=== PATIENT | male | born 1990 | race Caucasian/White ===

== ENCOUNTER 2021-02-21 14:42 | Emergency (ER) | payer MEDICAID ==
[~2021-02-21] VITALS: Ht 185.4 cm; Wt 88.6 kg
[2021-02-21 15:35] LABS: BASOPHILS % (AUTO) 0.5 % (0-1); EOSINOPHILS # (AUTO) 0.2 X10'3 (0-0.9); HEMOGLOBIN 16.2 g/dl (14.0-17.9); LYMPHOCYTES # (AUTO) 1.9 X10'3 (1.1-4.8); MEAN CORPUSCULAR HEMOGLOBIN 31.4 PG (27.0-31.0); MEAN CORPUSCULAR HGB CONC 33.8 g/dL (33.0-36.5); MEAN CORPUSCULAR VOLUME 93.1 FL (78-98); MEAN PLATELET VOLUME 8.7 FL (7.4-10.4); MONOCYTES # (AUTO) 0.6 X10'3 (0-0.9); MONOCYTES % (AUTO) 6.8 % (2-12); NEUTROPHILS # (AUTO) 5.9 X10'3 (1.8-7.7); NEUTROPHILS % (AUTO) 68.7 % (42-75); PLATELET COUNT 207 X10'3 (140-440); RED BLOOD COUNT 5.16 X10'6 (4.70-6.10); WHITE BLOOD COUNT 8.6 X10'3 (4.5-11.0)
[2021-02-21 15:44] LABS: PARTIAL THROMBOPLASTIN TIME 26 SECONDS (22-32)
[2021-02-21 15:47] LABS: ANION GAP 10 (8-16); BLOOD UREA NITROGEN 19 MG/DL (7-18); BUN/CREATININE RATIO 19.2 (5.4-32.0); CHLORIDE 105 MMOL/L (99-107); CREATININE 0.99 MG/DL (0.60-1.10); GLUCOSE 117 MG/DL (70-104); POTASSIUM 4.1 MMOL/L (3.5-5.1); SODIUM 144 MMOL/L (135-145); TOTAL CARBON DIOXIDE 29.2 MMOL/L (24-32)
[2021-02-21 15:48] LABS: ALANINE AMINOTRANSFERASE 40 U/L (12-78); ALBUMIN 4.3 G/DL (3.4-5.0); ALKALINE PHOSPHATASE 64 IU/L (46-116); ASPARTATE AMINO TRANSFERASE 20 U/L (10-37); BILIRUBIN,TOTAL 0.4 MG/DL (0.1-1.0); CALCIUM 9.2 MG/DL (8.5-10.1); TOTAL PROTEIN 8.5 G/DL (6.4-8.2); eGFR 89 ML/MIN
[2021-02-21 15:57] LABS: MAGNESIUM 1.9 MG/DL (1.5-2.4)
[2021-02-21 20:45] VITALS: BP 155/110
== END 2021-02-21 21:27 | disposition home or self-care (01) ==
LOC: ER 14:42
DX: R07.9 Chest pain, unspecified (principal)
CPT/HCPCS: 36415; 80053; 83735; 84443; 84484; 85025; 85610; 85730; 93005; 99284

== ENCOUNTER 2021-03-22 02:53 | Emergency (ER) | payer MEDICAID ==
[~2021-03-22] VITALS: Ht 185.4 cm; Wt 88.6 kg
[2021-03-22 03:00] VITALS: BP 169/104
--- NOTE | 2021-03-22 03:11 | NUR ---
MD FORD NOTIFIED OF PT SYMPTOMS AND COMPLAINTS. ER MD FORD, NOT A STROKE ALERT DUE TO ONSET OF 1630 YESTERDAY.
[2021-03-22] MEDS ORDERED: ASPI-1265 PO (04:24)
[2021-03-22] MEDS ORDERED: aspirin 81mg tab.chew PO ONE (04:25)
== END 2021-03-22 04:58 | disposition home or self-care (01) ==
LOC: ER 02:53
DX: R20.0 Anesthesia of skin (principal); Z98.890 Other specified postprocedural states; Z79.82 Long term (current) use of aspirin
CPT/HCPCS: 93005; 99283

== ENCOUNTER 2021-05-12 10:45 | Emergency (ER) | payer MEDICAID ==
[~2021-05-12] VITALS: Ht 185.4 cm; Wt 81.8 kg
[2021-05-12] MEDS ORDERED: hydrOXYzine 25 MG tablet PO ONE (11:10)
[2021-05-12 11:52] LABS: D-DIMER < 0.19 MG/L FEU (0-0.50)
[2021-05-12] MEDS ORDERED: HYDR-3686 PO (12:30)
[2021-05-12 12:56] VITALS: BP 139/92
== END 2021-05-12 12:58 | disposition home or self-care (01) ==
LOC: ER 10:45
DX: F41.9 Anxiety disorder, unspecified (principal); R07.89 Other chest pain; R00.2 Palpitations; Z98.890 Other specified postprocedural states; Z79.899 Other long term (current) drug therapy
CPT/HCPCS: 36415; 83880; 84484; 85379; 93005; 99284; Q0177

== ENCOUNTER 2022-10-08 15:30 | Outpatient (CLI) | payer MEDICAID ==
[~2022-10-08 15:30] MED LIST: HYDR-3686 PO
== END 2022-10-08 23:59 | disposition home or self-care (01) ==
LOC: RAD 15:30
PROVIDERS: ATTEND Thoracic Surgery (Cardiothoracic Vascular Surgery)
DX: R07.9 Chest pain, unspecified (principal); Z95.2 Presence of prosthetic heart valve; Z98.890 Other specified postprocedural states
CPT/HCPCS: 71046

== ENCOUNTER 2023-08-31 12:20 | Emergency (ER) | payer MEDICAID ==
[~2023-08-31] VITALS: Ht 188 cm; Wt 93.0 kg
[2023-08-31 12:22] VITALS: TEMP 97
[2023-08-31 13:28] LABS: BASOPHILS # (AUTO) 0.1 X10'3 (0-0.2); BASOPHILS % (AUTO) 1.9 % (0-1); EOSINOPHILS % (AUTO) 0.6 % (0-6); HEMATOCRIT 41.3 % (42.0-52.0); HEMOGLOBIN 14.3 g/dl (14.0-17.9); LYMPHOCYTES # (AUTO) 0.3 X10'3 (1.1-4.8); LYMPHOCYTES % (AUTO) 5.5 % (21-51); MEAN CORPUSCULAR HEMOGLOBIN 30.9 PG (27.0-31.0); MEAN CORPUSCULAR HGB CONC 34.8 g/dL (33.0-36.5); MEAN CORPUSCULAR VOLUME 88.8 FL (78-98); MEAN PLATELET VOLUME 8.9 FL (7.4-10.4); MONOCYTES # (AUTO) 0.4 X10'3 (0-0.9); MONOCYTES % (AUTO) 6.9 % (2-12); NEUTROPHILS # (AUTO) 5.2 X10'3 (1.8-7.7); NEUTROPHILS % (AUTO) 85.1 % (42-75); PLATELET COUNT 133 X10'3 (140-440); RED BLOOD COUNT 4.65 X10'6 (4.70-6.10); RED CELL DISTRIBUTION WIDTH 13.9 % (11.5-14.5); WHITE BLOOD COUNT 6.1 X10'3 (4.5-11.0)
[2023-08-31 13:38] LABS: APTT 36 SECONDS (22-32); INR 1.9 INR; PROTHROMBIN TIME 19.3 SECONDS (9.0-12.0)
[2023-08-31 13:44] LABS: ALBUMIN 3.8 G/DL (3.4-5.0); ANION GAP 8 (8-16); BLOOD UREA NITROGEN 45 MG/DL (7-18); BUN/CREATININE RATIO 18.2 (10.0-20.0); CALCIUM 9.6 MG/DL (8.5-10.1); CHLORIDE 99 MMOL/L (99-107); CREATININE 2.47 MG/DL (0.60-1.10); GLUCOSE 142 MG/DL (70-104); POTASSIUM 4.3 MMOL/L (3.5-5.1); SODIUM 133 MMOL/L (135-145); TOTAL CARBON DIOXIDE 25.6 MMOL/L (24-32); eCRCL 50 ML/MIN; eGFR 31 ML/MIN
[2023-08-31] MEDS: morphine 2 MG/ML inj. syringe IV ONE (14:36)
[2023-08-31] MEDS: ondansetron/PF 4mg/2ml inj IV ONE (14:36)
[2023-08-31 15:06] VITALS: BP 50/37
[2023-08-31] MEDS: oxyCODONE/APAP 10/325mg tablet PO ONE (15:09)
[2023-08-31] MEDS: normal saline 1000ML IV soln IVB ONE (16:56)
[2023-08-31] MEDS: morphine 10mg/ml inj. IV ONE ×2 (17:37→20:46)
[2023-08-31] MEDS: CefTRIAXone 2gm/D5W 50ml BAG 50 ML IV ONE (18:37)
[2023-08-31 19:20] VITALS: PULSE 81; O2SAT 95
[2023-08-31] MEDS: HYDROmorphone 1 mg/ml syringe IV ONE (20:39)
[2023-08-31 21:01] VITALS: RESP 16
== END 2023-08-31 21:09 | disposition short-term general hospital (02) ==
LOC: ER 12:21
DX: G93.40 Encephalopathy, unspecified (principal); N17.8 Other acute kidney failure; Z86.73 Personal history of transient ischemic attack (TIA), and cerebral infarction without residual deficits; Z87.891 Personal history of nicotine dependence; Z79.899 Other long term (current) drug therapy
CPT/HCPCS: 36415; 70450; 71045; 80048; 82948; 84145; 84484; 85025; 85610; 85730; 87040; 93005; 96361; 96365; 96375; 99285; J0696; J1170; J2270; J2274; J2405; J7030

== ENCOUNTER 2025-02-06 05:48 | Emergency (ER) | payer MEDICAID ==
[~2025-02-06] VITALS: Ht 182.9 cm; Wt 95.1 kg
[2025-02-06] VITALS (11 sets, daily range): BP systolic 76–101; BP diastolic 6–81; PULSE 95–118; RESP 16–28; TEMP 100; O2SAT 20–97
--- NOTE | 2025-02-06 06:08 | Physician Documentation ---
History of Present Illness ~ Chief Complaint: Overdose Stated Complaint: CALROS Mccormick ALS Time Seen by MD: 06:08 Primary Medical Doctor: DR. CARLITO RUBIO HPI 34-year-old male, who has an LVAD, presenting found down unresponsive Per EMS, the patient was seen by his father, and then found down unresponsive. When they arrived, he was not breathing very well and was very pale. Blood glucose was in the 200s. He was given 4 mg of Narcan and it did seem to slightly help wake him up. On arrival here in the ED, the patient is pale and is not really breathing well. Medication Reconciliation Allergies: Coded Allergies: isosorbide (Unverified Adverse Reaction, Unknown, MIGRAINES, 02/06/25) Scheduled Baclofen (Baclofen), 1 TAB PO TID, (Reported) Buspirone HCl (Buspirone HCl), 1 TAB PO TID, (Reported) Carvedilol (Carvedilol), 2 TAB PO BID, (Reported) Clonidine HCl (Clonidine HCl), 1 TAB PO TID, (Reported) Folic Acid* (Folic Acid*), 1 TAB PO DAILY, (Reported) Gabapentin (Neurontin), 300 MG PO morning and mid day, (Reported) Gabapentin (Neurontin), 600 MG PO HS, (Reported) Hydralazine HCl (Hydralazine HCl), 1 TAB PO TID, (Reported) Losartan Potassium (Losartan Potassium), 1 TAB PO DAILY, (Reported) Multivitamin (Multi Vitamin Daily), 1 TAB PO DAILY, (Reported) Naloxone HCl (Narcan), 1 SPRAYS BOTHNARES ONCE, (Reported) Nifedipine (Nifedipine Er), 3 TAB PO DAILY, (Reported) Oxycodone Hcl (Oxycodone Hcl), 1 TAB PO QID, (Reported) Pantoprazole Sodium (Pantoprazole Sodium), 1 TAB PO QAM, (Reported) Potassium Chloride* (K-Dur*), 1 TAB PO DAILY, (Reported) Sodium Chloride (Saline Nasal [place]), 1 SPRAYS BOTHNARES BID, (Reported) Warfarin Sodium (Warfarin Sodium), 1 TAB PO DAILY, (Reported) Scheduled PRN Alprazolam (Alprazolam), 0.25-0.5 TAB PO TID PRN for anxiety, (Reported) Furosemide (Furosemide), 1 TAB PO for per VAD team, (Reported) Discontinued Medications Hydroxyzine Hcl (Atarax), 25 MG PO TID Discontinued Reason: patient no longer taking Past Medical History Past Medical History: CVA/TIA/Stroke, *CARDIOVASCULAR* Past Surgical History: heart valve surgery Alcohol Use: None Lives In: Home Review of Systems Unable to obtain complete ROS: altered mental status, medical urgency Physical Exam Vital Signs: Temperature: 97.6, Source: Oral, Heart Rate: 84, Respiratory Rate: 13, BP: 116/75, Pulse Oximetry: 85, Weight: 95.100 Physical Exam General: This is an ill-appearing young man, unresponsive HEENT: No obvious trauma, pupils are 3 mm and sluggish Heart: The patient has an LVAD, I can hear mechanical noises to suggest it is working, I do not hear an alarm Lungs: Very shallow respirations, minimal coarse breath sounds, severe hypoxia Abdomen: Soft, nondistended Extremities: Cool and poorly perfused Neuro: Minimally responsive, does 1 time briefly wake up and bends his knees and moans, then essentially unresponsive Procedures Intubation Intubation Method: orotracheal Endotracheal Tube Size: 8 Medications: Etomidate ETT Confirmation: Ascultation, CO2 Detector Breath Sounds After Intubation: equal Intubation Complications: no complications Post Intubation Xray: Yes Progress/Xray Impression: ET tube in appropriate location Procedure Note The patient is emergently intubated using rocuronium and etomidate, with direct visualization. Oxygen saturations improved afterwards into the 90s Progress Results/Orders Results/Orders Orders - CLAUS JC MD Non-Behavioral Restraints (02/06/25 06:36) Nasal Gastric Tube (02/06/25 06:36) Chest,Single View (02/06/25 07:28) Abg (Arterial Blood Gas) (02/06/25 08:11) Ct Chest (02/06/25 08:51) Rt Assessment/Protocol/Eval/Tx (02/06/25 ) Completed Orders - CLAUS JC MD * (A) Lacy- Protocol * Q12H@07,19 (02/06/25 06:36) Normal Saline 1000ml (0.9% Sodium Chlori (02/06/25 06:50) Sodium Bicarbonate 1meq/Ml Syr (Sodium B (02/06/25 07:00) Piperacillin/Tazo 3.375gm/50ml (Zosyn 3. (02/06/25 07:25) Chest,Single View (02/06/25 07:28) Midazolam 5 Mg/Ml 2ml Inj (Versed 5 Mg/M (02/06/25 08:25) Midazolam 5 Mg/Ml 2ml Inj (Versed 5 Mg/M (02/06/25 08:30) Ct Chest (02/06/25 08:51) Ketamine 50mg/Ml 10ml Inj (Ketamine 50mg (02/06/25 08:50) Normal Saline 1000ml (0.9% Sodium Chlori (02/06/25 09:20) Midazolam 5 Mg/Ml 2ml Inj (Versed 5 Mg/M (02/06/25 08:35) * Extubate Patient * (02/06/25 09:15) Rocuronium Inj. (Zemuron Inj) (02/06/25 08:00) Normal Saline Flush Syringe (Saline Flus (02/06/25 08:00) Etomidate Inj (Amidate Inj) (02/06/25 08:00) Naloxone 2mg/2ml Inj (Narcan 2mg/2ml Inj (02/06/25 08:00) Acetaminophen 325mg Tablet (Tylenol Tabl (02/06/25 15:50) Medications Received in ER Medications (Trade) Dose Ordered Sig/Ruthy Route PRN Reason Start Time Stop Time Status Last Admin Dose Admin (Tylenol tablet) 975 mg ONCE ONCE PO 02/06/25 15:50 02/06/25 15:52 DC 02/06/25 16:09 975 MG Vital Signs 02/06/25 02/06/25 02/06/25 02/06/25 05:51 06:08 06:22 06:23 Temp 97.6 Pulse 84 106 108 Resp 13 16 16 16 B/P (MAP) 116/75 98/77 (84) Pulse Ox 85 93 94 FiO2 100 100 02/06/25 02/06/25 02/06/25 02/06/25 06:44 06:58 07:18 07:19 Temp 95.6 96.6 Pulse 115 118 121 Resp 17 20 21 B/P (MAP) 100/79 (86) 100/74 91/22 (45) Pulse Ox 95 93 91 FiO2 100 100 100 02/06/25 02/06/25 02/06/25 02/06/25 07:41 07:55 07:59 08:50 Temp 96.8 Pulse 119 108 Resp 33 23 B/P (MAP) 90/72 92/74 (80) 91/74 Pulse Ox 97 97 FiO2 100 50 02/06/25 02/06/25 02/06/25 02/06/25 08:55 08:58 09:08 09:15 Temp 97.0 Pulse 108 109 105 108 Resp 23 24 B/P (MAP) 79/67 (71) 77/65 (69) Pulse Ox 95 97 91 95 FiO2 55 55 55 55 02/06/25 02/06/25 02/06/25 02/06/25 09:19 09:33 09:45 09:51 Temp 97.0 Pulse 100 100 100 Resp 20 24 24 B/P (MAP) (47) 91/ (82) 96/81 Pulse Ox 91 92 92 O2 Delivery High Flow Nasal Cannula O2 Flow Rate 25.0 20.0 FiO2 55 02/06/25 02/06/25 02/06/25 02/06/25 09:52 10:17 11:54 12:44 Temp 97.1 97.9 97.8 Pulse 100 91 91 95 Resp 18 29 B/P (MAP) 94/80 (85) 93/78 (83) 99/82 (88) Pulse Ox 92 95 94 94 O2 Flow Rate 20.0 25.0 25.0 25.0 02/06/25 02/06/25 02/06/25 02/06/25 14:00 14:20 15:00 15:30 Temp 99.6 99.8 100.0 Pulse 95 100 103 101 Resp 21 28 B/P (MAP) 92/68 (76) 98/74 (82) 98/75 (83) Pulse Ox 93 94 89 90 O2 Flow Rate 15.0 25.0 25.0 25.0 02/06/25 02/06/25 16:28 17:01 Pulse 106 Resp 28 B/P (MAP) 96/70 (79) Pulse Ox 94 94 O2 Flow Rate 15.0 15.0 Laboratory Tests Test 02/06/25 06:09 9/29/25 06:50 02/06/25 07:47 02/06/25 08:09 White Blood Count 20.2 H Red Blood Count 3.82 L Hemoglobin 9.6 L Hematocrit 29.3 L Mean Corpuscular Volume 78.9 Mean Corpuscular Hemoglobin 25.9 L Mean Corpuscular Hemoglobin Concent 32.9 L Red Cell Distribution Width 18.5 H Platelet Count 297 Mean Platelet Volume 8.4 Neutrophils (%) (Auto) 60.8 Lymphocytes (%) (Auto) 31.1 Monocytes (%) (Auto) 6.1 Eosinophils (%) (Auto) 1.5 Basophils (%) (Auto) 0.5 Neutrophils # (Auto) 12.3 H Lymphocytes # (Auto) 6.3 H Monocytes # (Auto) 1.2 H Eosinophils # (Auto) 0.3 Basophils # (Auto) 0.1 CBC Comment Platelet Estimate Normal Red Blood Cell Morphology Perf Polychromasia 1+ Basophilic Stippling Anisocytosis 2+ [place] Cells Few Elliptocytes Few Prothrombin Time 29.1 H INR International Normalized Ratio 3.2 Coagulation Comments Sodium Level 148 H Potassium Level 4.0 Chloride Level 109 H Carbon Dioxide Level 16.4 L Anion Gap 23 H Blood Urea Nitrogen 14 Creatinine 1.34 H Estimated GFR/1.73 m2 61 BUN/Creatinine Ratio 10.4 Glucose Level 251 H Lactic Acid Level 13.7 *H Calcium Level 8.0 L Total Bilirubin 0.1 Aspartate Amino Transf (AST/SGOT) 27 Alanine Aminotransferase (ALT/SGPT) 18 Alkaline Phosphatase 64 Troponin I High Sensitivity 48 49 Pro-B-Type Natriuretic Peptide 5942 H Total Protein 6.5 Albumin 3.1 L Globulin 3.4 Albumin/Globulin Ratio 0.9 L Procalcitonin < 0.05 Chemistry Comments Ethyl Alcohol Level 44 H Blood Gas Specimen Type Arterial Arterial Blood Gas Puncture Site Carol Medina O2 Saturation 92.2 L 94.7 Arterial Blood pH (Temp corrected) 6.942 *L 7.362 Arterial Blood pCO2 (Temp correct) 56.0 H 35.4 Arterial Blood pO2 (Temp corrected) 93.1 75.2 L Arterial Blood PO2/FiO2 Ratio 1.02 0.80 Arterial Blood HCO3 12.1 L 19.9 L Arterial Blood Base Excess -20.2 L -5.2 L Arterial Blood Oxyhemoglobin 90.7 L 93.6 L Arterial Blood Carboxyhemoglobin 1.1 0.9 Arterial Blood Methemoglobin 0.5 0.3 Arterial Blood Deoxyhemoglobin 7.7 H 5.2 H Victorino Test Na Na Blood Gas Hemoglobin 11.4 L 10.8 L Blood Gas Temperature 35.5 36.0 Blood Gas Set Respiration Rate 16 20 Blood Gas Modality Vent - prvc Vent - prvc FiO2 100.0 100.0 Blood Gas Tidal Volume 450 450 Blood Gas PEEP 8 10 Blood Gas Critical Value Called To Dr. jc Troponin I High Sens Percent Delta 2 Troponin I Hi Sens Absolute Change 1 Test 02/06/25 09:04 02/06/25 09:24 Urine Specimen Description Lacy cath Urine Color Yellow Urine Clarity Slightly cloudy Urine pH 6.5 Urine Specific [place] 1.025 Urine Protein >=300 H Urine Glucose (UA) Negative Urine Ketones Negative Urine Occult Blood Negative Urine Nitrite Negative Urine Bilirubin Negative Urine Urobilinogen 0.2 Urine Leukocyte Esterase Negative Urine RBC 0-2 Urine WBC 10-20 H Urine Squamous Epithelial Cells Few Urine Bacteria 2+ Urine Cellular Casts >30 Urine Hyaline Casts 0-3 Urine Fine Granular Casts 0-3 Urine Mucus Moderate Urine Yeast Urine Culture Indicated Indicated Volume Urine Centrifuged 10 ml Urine Comment Urine Opiates Screen Negative Urine Methadone Screen Negative Urine Fentanyl Screen Negative Urine Barbiturates Screen Negative Urine Phencyclidine Screen Negative Urine Amphetamines Screen Negative Urine Benzodiazepines Screen Positive Urine Cocaine Screen Negative Urine Cannabinoids Screen Positive Drug Screen Comment Lactic Acid Level 2.0 Troponin I High Sensitivity 126 *H Troponin I High Sens Percent Delta 157 Troponin I Hi Sens Absolute Change 77 Microbiology Date/Time Source Procedure Growth Status 02/06/25 10:02 Urine Lacy Cath Urine Culture - Preliminary Culture received. Resulted 02/06/25 07:47 Blood Arterial Line Blood Culture - Preliminary NEGATIVE (LESS THAN 24 HOURS) Resulted Departure Impression: Primary Impression: Poisoning by opiate or related narcotic Additional Impression: Acute hypoxic respiratory failure Referrals: NO PRIMARY CARE PROVIDER (PCP) Critical Care Note Critical Care Note Critical Care Note The very real possibility of a deterioration of this patient's condition required the highest level of my preparedness for sudden, emergent intervention. I provided critical care services, which included medication orders, frequent reevaluations of the patient's condition and response to treatment, ordering and reviewing test results, and discussing the case with various consultants. Excludes time spent performing separately billable procedures. The critical care time associated with the care of the patient was 45 minutes in the management of acute hypoxic respiratory failure Signature Scribe Signature: kota Attestation: na Addendum Received patient in sign out from outgoing ED physician, Dr. Smith. Please see their note (and other providers) for further specific details regarding initial encounter. HPI/Course In Brief: This 34-year-old male with an LVAD reportedly crushed some opioid pills and self administered them. His father noted that he was able to walk back to his bedroom but subsequently found him unresponsive. EMS arrived reportedly 10 minutes later and administered Narcan. He has reportedly had 6 mg IV but was hypoventilating and pale. He was intubated without difficulty by the night physician, Dr. Smith. I inserted an art line into his right brachial artery and a central line through the right internal jugular as per my notes. A time out was performed. My hands were washed immediately prior to the procedure. I wore a surgical cap, mask with protective eyewear, sterile gown and sterile gloves throughout the procedure. After an Victorino test was performed to ensure adequate perfusion, the right antecubital fossa was prepped using chlorhexidine scrub and draped in sterile fashion using a three quarter sheet drape and sterile towels. The radial pulse was identified and the wrist was positioned in the usual fashion. Anesthesia was achieved using 1% lidocaine. Using the Arrow Radial Arterial Line Kit, a needle was inserted into the radial artery. Arterial blood was seen to pulsate in the flash chamber. The internal guidewire was advanced easily into the radial artery. The catheter was then advanced over the wire and the needle and wire were withdrawn. The catheter was sutured in place. A sterile opsite was placed over the catheter at the insertion site. The patient tolerated the procedure without any hemodynamic compromise. At the time of procedure completion, the catheter was connected to the site monitor and calibrated. Appropriate waveform and blood pressure tracing was observed. Estimated blood loss is two cc. PROCEDURE: Ultrasound Guided right internal jugular Central Venous Line Insertion DIAGNOSIS: Critical patient Procedure Performed by Claus Jc MD INFORMED CONSENT: Informed Consent was obtained. Procedural pause was observed at 6:15 a.m.. I have verified the correct patient, correct procedure, correct position, correct site, and available equipment. The site was marked. PROCEDURE START TIME: 6:15 a.m.. PROCEDURE STOP TIME: 7:00 a.m.. INDICATION: Insufficient peripheral venous access for pressors, etc.. PROCEDURE IN DETAIL: The patient and ultrasound transducer were prepped and draped in sterile fashion. Using the linear probe covered in a sterile sheath, a short axis view of the vein was obtained. This vein was completely compressible and was identified as separate from the adjacent non-compressible arterial structure. No intraluminal clot was visualized. Longitudinal views of the target vein were also obtained. No intravascular thrombus was identified. Under dynamic ultrasound guidance, an 18 gauge needle was advanced with return of dark red, non-pulsatile blood. A wire was advanced without difficulty. A 0.5 cm incision was made at the skin and the subcutaneous tissue is dilated. The catheter was advanced over the wire via the Seldinger technique and the wire was removed. All ports flushed without difficulty. The catheter was secured in place with sutures and the entrance site covered with a sterile, transparent, semi-permeable dressing With placement of CHG Biopatch. Placement was confirmed by radiography. These images were captured, recorded, and archived. The patient tolerated the procedure well with no complications. Blood loss was minimal. Conclusion: Successful central venous catheterization under ultrasound guidance. An initial blood gas revealed a pH of 6.925. Two amps of bicarb were ad ministered. PH improved. The patient awoke and was extubated in the emergency department. Of note, his hemoglobin here is 9.4 with normal previous hemoglobin levels. He reports bleeding per rectum that he noticed three days ago. He still has slurred s peech. ED COURSE: 10:16 a.m.: I spoke with the [facility] LVAD coordinator, Bryce ([phone]) who said he would discuss the case with his physicians in order to arrive at a transfer decision. Due to the high probability of cardiovascular failure required my full attention for about 60 minutes while the patient was critical. I provided critical care services which included medication orders, frequent re-evaluations, response to treatment, renewing test results, and discussing case with various consultants. Unless specifically stated all procedures, tests, and medications were performed/interpreted under the direct supervision of the emergency department physician. Discussed harm reduction to this emergency department visit today. Patient expresses understanding and agrees to plan. All questions answered to the best of my ability. Discharged in stable condition with strict ED return precautions and close outpatient follow-up with primary care. EMR and Dragon Attestation - this medical document was created using an electronic medical record system with [employer] computerized dictation system. Although this document has been carefully reviewed, there may still be some phonetic and typographical errors. These errors are purely typographical, due to imperfections of the software programs, and do not reflect any compromise in the patient's medical care. Note to Patients: Physician notes are written for the purpose of communication between medical providers and billing purposes. There may be aspects of this documentation that are simplified for efficiency and clarity. Physician notes are not intended to capture the entirety of your experience in the hospital. If you have questions about the way your medical condition and care was documented, please do not hesitate to bring this up at your next visit with your physician. AUSTYN SMITH MD Feb 06, 2025 06:08 CLAUS JC MD Feb 06, 2025 07:37
[2025-02-06] MEDS: etomidate 2mg/ml inj. IV ONE (06:17)
[2025-02-06] MEDS: rocuronium 10mg/ml inj IV ONE (06:18)
[2025-02-06] MEDS: naloxone 2mg/2ml inj ONE (06:19)
[2025-02-06 06:30] LABS: MEAN PLATELET VOLUME 8.4 FL (7.4-10.4); RED CELL DISTRIBUTION WIDTH 18.5 % (11.5-14.5)
[2025-02-06] MEDS ORDERED: propofol 1000mg/100ml bottle 100 ML IV SCH (06:30)
[2025-02-06] MEDS: propofol 1000mg/100ml bottle 100 ML IV ONE (06:34)
[2025-02-06] MEDS: propofol 1000mg/100ml bottle 100 ML IV PRN (06:36)
[2025-02-06 06:46] LABS: INR 3.2 INR
[2025-02-06] MEDS: normal saline 1000ML IV soln IVB ONE (06:53)
[2025-02-06 06:55] LABS: ABG BASE EXCESS -20.2 mmol/L (-2.0-3.0); ABG HCO3 12.1 mmol/L (21.0-28.0); ABG OXYGEN SATURATION 92.2 % (94.0-98.0); ABG PCO2 (T) 56.0 mmHg (35.0-48.0); ABG PH (T) 6.942 (7.350-7.450); ABG PO2 (T) 93.1 mmHg (83.0-108.0); FCOHb 1.1 % (0.5-1.5); FHHb 7.7 % (0.0-5.0); FIO2 100.0 mmHg/%; FMetHb 0.5 % (0.0-1.5); FO2Hb 90.7 % (94.0-98.0); MODE VENT - PRVC; PATIENT TEMPERATURE 35.5; PEEP 8 cm H2O; RESPIRATORY RATE 16 b/min; TIDAL VOLUME 450 mL; TOTAL HEMOGLOBIN 11.4 G/dl (13.5-17.5)
[2025-02-06 06:58] LABS: CREATININE 1.34 MG/DL (0.60-1.10); TOTAL CARBON DIOXIDE 16.4 MMOL/L (24-32); eCRCL 86 ML/MIN; eGFR 61 ML/MIN
[2025-02-06 07:00] LABS: ETHANOL 44 MG/DL (<10); PRO BRAIN NATRIURETIC PEPTIDE 5942 PG/ML (0-125)
[2025-02-06] MEDS: sodium bicarbonate (8.4%) 1 mEq/ml syringe IV ONE (07:18)
--- NOTE | 2025-02-06 07:35 | RADIOLOGY REPORT ---
CHEST RADIOGRAPH Indication: POST INTUBATION Technique: Single frontal view of the chest was obtained Comparison: DI CHEST,SINGLE VIEW on DOS: 08/31/23 FINDINGS: Lines and Tubes: The endotracheal tube terminates 3.9 cm above the [place]. The enteric tube courses below the left hemidiaphragm and the tip extends outside the field of view. Lungs: Patchy bilateral airspace disease. Pleura: No effusion. No pneumothorax. Cardiomediastinal contours: Cardiomegaly. Left ventricular assist device noted. Bones: No acute osseous abnormality. IMPRESSION: Bilateral airspace disease which may reflect pulmonary edema Cardiomegaly.
--- NOTE | 2025-02-06 07:53 | RADIOLOGY REPORT ---
CHEST RADIOGRAPH Indication: CENTRAL LINE PLACEMENT. Technique: Single frontal view of the chest was obtained Comparison: DI CHEST,SINGLE VIEW on DOS: 02/06/25, DI CHEST,SINGLE VIEW on DOS: 08/31/23, XR CHEST 2 VIEWS PA LATERAL on DOS: 07/03/23, XR CHEST 2 VIEWS PA LATERAL on DOS: 07/03/23, CHEST,TWO VIEWS on DOS: 10/08/22, DI CHEST,SINGLE VIEW on DOS: 02/06/25 FINDINGS: Lines and Tubes: The endotracheal tube terminates 3.9 cm above the [place]. The enteric tube courses below the left hemidiaphragm and the tip extends outside the field of view. Lungs: Patchy bilateral airspace disease. Pleura: No effusion. No pneumothorax. Cardiomediastinal contours: Cardiomegaly. Left ventricular assist device noted. Bones: No acute osseous abnormality. IMPRESSION: Bilateral airspace disease which may reflect pulmonary edema Cardiomegaly.
[2025-02-06] MEDS: piperacillin/tazo 3.375gm/50ml 50 ML IV ONE (07:59)
[2025-02-06] MEDS ORDERED: etomidate 2mg/ml inj. ONE (08:00)
[2025-02-06] MEDS ORDERED: naloxone 2mg/2ml inj ONE (08:00)
[2025-02-06] MEDS ORDERED: rocuronium 10mg/ml inj IV ONE (08:00)
[2025-02-06] MEDS ORDERED: sod chloride 0.9% 10ml flush syringe IV ONE (08:00)
[2025-02-06 08:14] LABS: ABG BASE EXCESS -5.2 mmol/L (-2.0-3.0); ABG HCO3 19.9 mmol/L (21.0-28.0); ABG OXYGEN SATURATION 94.7 % (94.0-98.0); ABG PCO2 (T) 35.4 mmHg (35.0-48.0); ABG PH (T) 7.362 (7.350-7.450); ABG PO2 (T) 75.2 mmHg (83.0-108.0); FCOHb 0.9 % (0.5-1.5); FHHb 5.2 % (0.0-5.0); FIO2 100.0 mmHg/%; FMetHb 0.3 % (0.0-1.5); FO2Hb 93.6 % (94.0-98.0); MODE VENT - PRVC; PATIENT TEMPERATURE 36.0; PEEP 10 cm H2O; RESPIRATORY RATE 20 b/min; TIDAL VOLUME 450 mL; TOTAL HEMOGLOBIN 10.8 G/dl (13.5-17.5)
[2025-02-06] MEDS: MIDAZolam 5mg/ml 2ml vial ONE (08:27)
[2025-02-06] MEDS: MIDAZolam 5mg/ml 2ml vial IV ONE ×2 (08:35)
--- NOTE | 2025-02-06 09:06 | RADIOLOGY REPORT ---
EXAM: CT CT HEAD HISTORY: Altered mental status unresponsive COMPARISON: CT CT STROKE ALERT on DOS: 08/31/23, CT BRAIN WO CONTRAST on DOS: 07/03/23 TECHNIQUE: Noncontrast axial CT images of the head were performed. Sagittal and coronal reformatted images were obtained. This CT exam was performed using 1 or more of the following dose reduction techniques: Automated exposure control, adjustment of the mA and/or kv according to patient size, or the use of iterative reconstruction techniques. Radiation Dose: CTDI volume is 69.17 mGy. Dose-length product is 1231.77 mGy*cm FINDINGS: No intracranial hemorrhage, mass, midline shift, hydrocephalus, or evidence of acute large vessel infarct. Old infarcts are re-identified in the right posterior frontal lobe, basal ganglia, and insula. There is a mucous retention cyst in the right maxillary sinus. There is mild mucosal thickening in the ethmoid sinuses. There are bilateral chris bullosa. The bilateral mastoid air cells and middle ear spaces are clear. No cranial fracture or scalp edema. IMPRESSION: 1. Chronic ischemic changes without evidence of acute intracranial process. 2. Mild paranasal sinus disease.
--- NOTE | 2025-02-06 09:06 | RADIOLOGY REPORT ---
CT Chest without intravenous contrast INDICATION: Non-diagnostic x-ray TECHNIQUE: Multidetector spiral CT of the chest was performed from the lung apices to the upper abdomen. Axial, coronal and sagittal multiplanar reformats were performed. Radiation Dose : 1. Chest: CTDI volume is 18.6 mGy. Dose-length product is 644 mGy*cm The dose indicators for CT are the volume Computed Tomography (CT) Dose Index (CTDIvol) and the Dose Length Product (DLP), and are measured in units of mGy and mGy-cm, respectively. These indicators are not patient dose, but values generated from the CT scanner acquisition factors. The report includes radiation exposure data for exposures received during this examination. Comparison: DI CHEST,SINGLE VIEW on DOS: 02/06/25, DI CHEST,SINGLE VIEW on DOS: 02/06/25, DI CHEST,SINGLE VIEW on DOS: 08/31/23, XR CHEST 2 VIEWS PA LATERAL on DOS: 07/03/23, XR CHEST 2 VIEWS PA LATERAL on DOS: 07/03/23 Findings: Lower neck: Normal thyroid. Lungs: Small bilateral pleural effusions. Bilateral lower lobe atelectasis, right greater than left. No focal consolidation. Heart/Vascular Structures: Left ventricular assist device in-situ. Cardiomegaly. Coronary artery calcifications. Vascular calcifications of the aorta. No pericardial effusion. Lymph Nodes: No adenopathy. Pleura: No significant pneumothorax. Musculoskeletal: No acute osseous abnormality. Soft tissues: Normal. Upper abdomen: Nasogastric tube in the stomach. Air-filled distended stomach. Limited portions of the upper abdomen are unremarkable. Endotracheal tube and right central venous catheter in satisfactory position. Median sternotomy. IMPRESSION: Small bilateral pleural effusions. Bilateral lower lobe atelectasis, right greater than left. Air-filled distended stomach. Radiation optimization: All CT scans at this facility use at least one of these dose optimization techniques: automated exposure control mA and/or kV adjustment per patient size (includes targeted exams where dose is matched to clinical indication) or iterative reconstruction.
[2025-02-06] MEDS: normal saline 1000ml 1,000 ML IV ONE (09:26)
[2025-02-06 09:29] LABS: PLATELET ESTIMATE NORMAL
[2025-02-06 09:30] LABS: ELLIPTOCYTES FEW
[2025-02-06 09:39] LABS: LEUKOCYTE ESTERASE ,URINE NEGATIVE (Neg); NITRITES, URINE NEGATIVE (Neg); OCCULT BLOOD,URINE NEGATIVE (Neg)
[2025-02-06 09:46] LABS: UA COLLECTION TYPE FOLEY CATH
[2025-02-06 10:00] LABS: MUCUS STRANDS MODERATE /LPF (Neg); SQUAMOUS EPITHELIAL CELL,UR FEW /LPF (FEW)
[2025-02-06 10:01] LABS: CELLULAR CAST >30 /LPF (NEGATIVE)
[2025-02-06 10:02] LABS: FINE GRANULAR CAST 0-3 /LPF (NEGATIVE); HYALINE CASTS 0-3 /LPF (NEGATIVE)
[2025-02-06 10:25] LABS: URINE AMPHETAMINE SCREEN NEGATIVE (Neg); URINE BARBITUATE SCREEN NEGATIVE (Neg); URINE BENZODIAZEPINES SCREEN POSITIVE (Neg); URINE CANNABINOID SCREEN POSITIVE (Neg); URINE COCAINE SCREEN NEGATIVE (Neg); URINE METHADONE SCREEN NEGATIVE (Neg); URINE OPIATE SCREEN NEGATIVE (Neg); URINE PHENCYCLIDINE SCREEN NEGATIVE (Neg)
[2025-02-06] MEDS ORDERED: SODI30SP3 BOTHNARES (11:51)
[2025-02-06] MEDS ORDERED: FURO40TA4 PO (11:51)
[2025-02-06] MEDS ORDERED: PANT40TA54 PO (11:51)
[2025-02-06] MEDS ORDERED: POTA-207 PO (11:51)
[2025-02-06] MEDS ORDERED: FOLI1TAB27 PO (11:51)
[2025-02-06] MEDS ORDERED: NALO4SPR BOTHNARES (11:51)
[2025-02-06] MEDS ORDERED: MULT-1085 PO (11:51)
[2025-02-06] MEDS ORDERED: CARV25TA56 PO (11:51)
[2025-02-06] MEDS ORDERED: CLON0.3T36 PO (11:51)
[2025-02-06] MEDS ORDERED: WARF6TAB49 PO (11:51)
[2025-02-06] MEDS ORDERED: GABA300C PO ×2 (11:51)
[2025-02-06] MEDS ORDERED: BACL10TA2 PO (11:51)
[2025-02-06] MEDS ORDERED: LOSA25TA41 PO (11:51)
[2025-02-06] MEDS ORDERED: OXYC10TA47 PO (11:51)
[2025-02-06] MEDS ORDERED: NIFE-72 PO (11:51)
[2025-02-06] MEDS ORDERED: BUSP15TA3 PO (11:51)
[2025-02-06] MEDS ORDERED: ALPR0.5T9 PO (11:51)
[2025-02-06] MEDS ORDERED: HYDR100T12 PO (11:51)
== END 2025-02-06 17:23 | disposition short-term general hospital (02) ==
LOC: ER 05:48
DX: T40.601A Poisoning by unspecified narcotics, accidental (unintentional), initial encounter (principal); R40.4 Transient alteration of awareness; J96.01 Acute respiratory failure with hypoxia; Z86.73 Personal history of transient ischemic attack (TIA), and cerebral infarction without residual deficits; Z88.8 Allergy status to other drugs, medicaments and biological substances; Z79.899 Other long term (current) drug therapy; Y92.89 Other specified places as the place of occurrence of the external cause
CPT/HCPCS: 31500; 36415; 36556; 36600; 70450; 71045; 71250; 80053; 80305; 80320; 81001; 82803; 83605; 83880; 84145; 84484; 85008; 85018; 85025; 85610; 87040; 87077; 87088; 87186; 94002; 94799; 96365; 96366; 96368; 96375; 99291; A6258; J2250; J2312; J2543; J2704; J3490; J7030; J7040; 94760; A6449; C1751; C1758